=== PATIENT | female | born 1965 | race Two or more races ===

== ENCOUNTER → 2022-08-25 09:03 | Outpatient (BNVA) | payer OTHER, SELFPAY | PROVIDERS: Visit Provider Internal Medicine Rheumatology | DX: M47.816 Spondylosis without myelopathy or radiculopathy, lumbar region (principal); M79.7 Fibromyalgia | CPT/HCPCS: 99212 ==

== ENCOUNTER → 2022-10-04 13:30 | Outpatient (BNVA) | payer OTHER, SELFPAY | PROVIDERS: Visit Provider Nurse Practitioner Family | DX: M79.7 Fibromyalgia (principal); M54.16 Radiculopathy, lumbar region; M47.816 Spondylosis without myelopathy or radiculopathy, lumbar region; G89.4 Chronic pain syndrome | CPT/HCPCS: 99202 ==

== ENCOUNTER → 2022-11-03 15:00 | Outpatient (BNVA) | payer OTHER, SELFPAY | PROVIDERS: PCP Internal Medicine; Visit Provider Nurse Practitioner Family | DX: G89.4 Chronic pain syndrome (principal); M47.26 Other spondylosis with radiculopathy, lumbar region; M79.7 Fibromyalgia; Z79.899 Other long term (current) drug therapy | CPT/HCPCS: Q3014 ==

== ENCOUNTER → 2022-11-28 14:23 | Outpatient (BNVA) | payer OTHER, SELFPAY | PROVIDERS: Visit Provider Nurse Practitioner Family | DX: G89.4 Chronic pain syndrome (principal); M47.26 Other spondylosis with radiculopathy, lumbar region; M79.7 Fibromyalgia; Z79.899 Other long term (current) drug therapy | CPT/HCPCS: Q3014 ==

== ENCOUNTER 2023-01-24 10:59 | Outpatient (REF) | payer OTHER, SELFPAY ==
--- NOTE | ~2023-01-24 | MR_ITS ---
EXAMINATION: MR LUMBAR SPINE WITHOUT CONTRAST CLINICAL INFORMATION: Radiculopathy, lumbar region. COMPARISON: None TECHNIQUE: MRI of the lumbar spine was obtained using routine sequences without contrast. FINDINGS: The lumbar vertebral bodies maintain normal heights. The alignment is preserved. No bone marrow edema is seen. The disc heights are preserved. The distal spinal cord appears normal. Conus medullaris terminates normally at the L1 level. The extraspinal soft tissues are within normal limits. SPINAL LEVELS: L1-L2: No posterior disc abnormality. No spinal canal or neural foraminal stenosis. L2-L3: No posterior disc abnormality. No spinal canal or neural foraminal stenosis. L3-L4: Shallow central protrusion with annular fissuring. No spinal canal or neural foraminal stenosis. L4-L5: Small central protrusion. Left subarticular/foraminal extrusion which compresses the traversing left L5 nerve root and contacts the exiting left L4 nerve root. Moderate facet arthropathy. No spinal canal stenosis. L5-S1: No posterior disc abnormality. Mild to moderate facet arthropathy. No spinal canal or neural foraminal stenosis. MR/MR lumbar spine wo con IMPRESSION: 1. At L4-L5 there is left subarticular/foraminal extrusion which compresses the traversing left L5 nerve root and contacts the exiting left L4 nerve root. 2. At L3-L4 there is shallow central protrusion with annular fissuring without nerve root compression.
== END 2023-01-24 11:00 | disposition home or self-care (01) ==
LOC: HO.MRI 10:59
PROVIDERS: PCP Internal Medicine; Visit Provider Nurse Practitioner Family
DX: M54.16 Radiculopathy, lumbar region (principal); M47.816 Spondylosis without myelopathy or radiculopathy, lumbar region
CPT/HCPCS: 72148

== ENCOUNTER → 2023-02-17 09:49 | Outpatient (BNVA) | payer OTHER, SELFPAY | PROVIDERS: PCP Internal Medicine; Visit Provider Nurse Practitioner Family | DX: M54.16 Radiculopathy, lumbar region (principal); M48.061 Spinal stenosis, lumbar region without neurogenic claudication | CPT/HCPCS: 99212 ==

== ENCOUNTER → 2023-03-17 09:48 | Outpatient (BNVA) | payer OTHER, SELFPAY | PROVIDERS: PCP Internal Medicine; Visit Provider Physician Assistant | DX: M47.816 Spondylosis without myelopathy or radiculopathy, lumbar region (principal) | CPT/HCPCS: 99202 ==

== ENCOUNTER 2023-05-19 08:25 | Outpatient (AMB) | payer OTHER, SELFPAY ==
--- NOTE | 2023-05-19 08:52 | HO.SPINEOV ---
Intake Intake Visit Reasons: f/up 2 months Intake Note: Mr. Chaves is here today for her 2mo follow up. 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 Allergies acetaminophen [From Percocet] Allergy (Intermediate, Verified 03/17/23 10:10) itchiness baclofen Allergy (Intermediate, Verified 03/17/23 10:10) Nausea and Vomiting codeine Allergy (Intermediate, Verified 03/17/23 10:10) Swelling ibuprofen [From Motrin] Allergy (Intermediate, Verified 03/17/23 10:10) Rash nabumetone Allergy (Intermediate, Verified 03/17/23 10:10) Rash oxycodone [From Percocet] Allergy (Intermediate, Verified 03/17/23 10:10) itchiness tramadol Allergy (Intermediate, Verified 03/17/23 10:10) seizures trazodone Allergy (Intermediate, Verified 03/17/23 10:10) seizures Assessment & Plan Assessment & Plan (1) Lumbar radiculopathy: Code(s): M54.16 - Radiculopathy, lumbar region Plan The patient is a 58-year-old female who comes in with a chief complaint of continued low back pain and radicular symptoms down her left side. This is been ongoing and she has previously been seen by our service for this problem. After her last visit with Moris, he recommended that she work on lowering her A1c as her last reading was a 9. She was able to follow-up with her primary care physician and got her A1c down to a 7 per her self report, but did not bring records of this so we are unable to verify for sure about her A1c is down to a 7. She states that her mud tank operator is Leilani Chiu out of [address] [place] [address] in [place] if we needed to follow-up on her A1c in the future that is who we would need to contact. We reviewed her previous history and physical and discussed her current symptoms. It seems that her radicular symptoms continue to follow an L5/S1 dermatomal distribution, however her symptoms are relatively nonspecific and is difficult for her to adequately determine an exact radiation of her symptoms. Her previous imaging report shows a slight disc bulge on the left at L4-5 with some slight contact of the left L5 nerve root with mild posterior displacement. We discussed potential surgical interventions for this problem, which the patient was not amenable to. She stated that she has had many surgeries in the past, and would prefer to continue to work on her health rather than go through another surgery. We discussed potential nonsurgical intervention for her problem, and she was recommended to continue working with her primary care physician and mud tank operator to get her diabetes under control. We also discussed meaningful interventions for her daily pain including daily walks, and water sports. Total amount of time spent in this visit was 20 minutes in discussion of symptoms, MRI imaging results and subsequent plan of care Campos Pete MD,PhD [facility] Coding Level of Care Code Tele Est Pt Level 3 (07158) Diagnoses Lumbar radiculopathy M54.16
== END 2023-05-19 09:53 | disposition home or self-care (01) ==
PROVIDERS: PCP Internal Medicine; Visit Provider Physician Assistant
DX: M54.16 Radiculopathy, lumbar region (principal)
CPT/HCPCS: 99213

== ENCOUNTER → 2023-05-19 08:25 | Outpatient (BNVA) | payer OTHER, SELFPAY | PROVIDERS: PCP Internal Medicine; Visit Provider Physician Assistant | DX: M54.16 Radiculopathy, lumbar region (principal) | CPT/HCPCS: 99212 ==

== ENCOUNTER 2023-10-18 11:10 | Outpatient (REF) | payer OTHER, SELFPAY ==
[2023-10-18 11:57] LABS: Estimated Average Glucose 217 mg/dL; Hemoglobin A1c % 9.2 % (<6.0)
[2023-10-18 12:35] LABS: Anion Gap 12 (12-20); Blood Urea Nitrogen 14 mg/dL (9-16); Calcium 9.3 mg/dL (8.4-10.2); Carbon Dioxide 28 mmol/L (22-29); Chloride 102 mmol/L (96-108); Estimated Glomerular Filt Rate > 60; Glucose Random 254 mg/dL (60-115); Potassium 4.5 mmol/L (3.3-5.1); Sodium 137 mmol/L (135-145)
[2023-10-18 12:36] LABS: Erythrocyte Sedimentation Rate 23 MM/HR (0-20)
[2023-10-18 12:39] LABS: Thyroid Stimulating Hormone 0.98 uIU/mL (0.32-4.0)
== END 2023-10-18 11:11 | disposition home or self-care (01) ==
LOC: HO.LAB 11:10
PROVIDERS: PCP Internal Medicine; Visit Provider Psychiatry & Neurology Neurology
DX: E11.40 Type 2 diabetes mellitus with diabetic neuropathy, unspecified (principal); M79.7 Fibromyalgia
CPT/HCPCS: 36415; 80048; 82550; 83036; 84443; 85652